=== PATIENT | female | born 1970 | race Caucasian/White ===

== ENCOUNTER 2019-10-11 10:05 | Outpatient (CLI) | payer MEDICARE, MEDICAID, SELFPAY ==
--- NOTE | 2019-10-11 10:13 | MM_ITS ---
WS: [id number] BILATERAL DIGITAL SCREENING MAMMOGRAPHY WITH CAD CLINICAL INFORMATION: SCREENING HISTORY: Screening mammogram. No current complaints. COMPARISON: September 22, 2018 TECHNIQUE: Bilateral CC and MLO views. FINDINGS: Scattered fibroglandular densities bilaterally. Lucent centered calcification left breast. No suspici ous focal mass, asymmetry, calcifications, or architectural distortion. No evidence of malignancy. MM/[id number] IMPRESSION: BI-RADS: 1-Negative FOLLOW UP: 1 Year Follow-up Recommend return to annual screening mammography.
== END 2019-10-11 10:06 | disposition home or self-care (01) ==
LOC: RADSHAW 10:10
PROVIDERS: Family Provider Family Medicine; Visit Provider Family Medicine
DX: Z12.31 Encounter for screening mammogram for malignant neoplasm of breast (principal)
CPT/HCPCS: 77067

== ENCOUNTER 2020-11-17 09:42 | Outpatient (CLI) | payer MEDICARE, MEDICAID, SELFPAY ==
--- NOTE | 2020-11-17 09:47 | MM_ITS ---
WS: [id number] Exam: [place] [id number] Date/Time of Exam: 11/17/2020 9:47 AM Reason For Exam: SCREENING VIEWS: MLO and CC views both breasts. Comparison made with prior exam of 09/21/2017, 09/22/2018 and 10/11/2019. Findings: There was no sign of mass, architectural distortion or suspicious calcification in either breast. Sc attered fibroglandular densities MM/[place] [id number] Impression: BI-RADS: 2-Benign FOLLOW-UP: 1 Year Follow-up This mammogram was also analyzed by the Computer Aided Detection System R2 Imag e Line Crewman.
== END 2020-11-17 09:43 | disposition home or self-care (01) ==
LOC: RADSHAW 09:46
PROVIDERS: Family Provider Family Medicine; Visit Provider Family Medicine
DX: Z12.31 Encounter for screening mammogram for malignant neoplasm of breast (principal)
CPT/HCPCS: 77067

== ENCOUNTER 2021-07-16 14:21 | Emergency (ER) | payer MEDICARE, MEDICAID, SELFPAY ==
[2021-07-16 14:29] VITALS: BP 139/95; PULSE 120; RESP 22; TEMP 37; O2SAT 97; BMI 54.6
--- NOTE | 2021-07-16 14:34 | XR_ITS ---
WS: [id number] Exam: XR chest 1V portable [id number] Date/Time of Exam: 07/16/2021 2:34 PM Reason For Exam: sob Comparison 07/04/2015. The lungs are clear and fully expanded. The heart is not enlarged. The mediastinum is not widened. Re gional bony elements appear normal. Monitoring leads superimpose the chest. XR/XR chest 1V portable [id number] IMPRESSION: 1. No acute cardiopulmonary finding.
--- NOTE | 2021-07-16 14:34 | ECG_ITS ---
[facility] Test Date: 2021-07-16 Pat Name: Juanis Padgett Department: Room: Gender: Female Cyber Security Analyst: : 1970 Requested By: Sekou Meadows Order Number: [id number] Jorje MD: Karli Velazquez M.D. Measurements Intervals Randolph Rate: P: MN: QRS: QRSD: T: QT: QTc: Interpretive Statements Possible sinus rhythm with PACs WARNING: DATA QUALITY MAY AFFECT INTERPRETATION No previous ECG available for comparison Electronically Signed On 07-17-2021 16:12:05 FORENSIC CHEMIST by Karli Velazquez M.D. [email or web address]
--- NOTE | 2021-07-16 15:03 | W.ED.SOB ---
HPI - SOB/Dyspnea General: Chief Complaint: Shortness of Breath/Dyspnea Stated Complaint: COVID SOB Time Seen by Provider: 07/16/21 14:33 History of Present Illness: HPI Narrative: Patient is a 51-year-old female here with shortness of breath. States that she got a Covid test this afternoon after somebody in her assisted living facility tested positive. It was a home off the shelf test. She did not have any symptoms abdomen some mild nausea to that point. That afternoon she became short of breath ambulance was called and she needed 3 L of nasal cannula to keep her up in the mid 90s. Has only had a mild cough no fevers chills chest pain vomiting diarrhea altered mental status or syncope Review of Systems General: Reports: 10 or more systems reviewed and unremarkable except in HPI and below PFSH ED PFSH: Medical History (Updated 07/16/21 @ 18:43 by Sekou Murillo MD) Diabetes Female hirsutism History of deep vein thrombosis Hypertension Metrorrhagia Patient no menses since last seen. FSH ordered and WNL. The patient was counseled regarding perimenopausal bleeding and the transition time for perimenopause. She had been prescribed a Depo-Provera injection. Menstrual diary tracking log was given. Follow-up in 3 months. Surgical History History of delivery (~1995) History of tubal ligation (~1995) Previous section (~1989) Social History (Updated 09/18/19 @ 13:43 by Guera Gloria RN) Smoking and tobacco status: never smoked Alcohol intake: never Physical Exam Const: COMMON NORMALS: no acute distress, average body habitus, patient oriented x3, no limitations, healthy appearing, alert and well nourished EXAM LIMITATIONS: no altered mental status, no behavioral limitations and no language barrier HENMT: COMMON NORMALS: normocephalic and atraumatic HEAD & SCALP: normocephalic and atraumatic Eye: COMMON NORMALS: Equal, round and reactive pupils present and EOMs intact bilaterally PUPIL: Yes Equal, round and reactive pupils present Chest: COMMONS NORMALS: normal inspection of the chest Resp: COMMON NORMALS: normal respiratory effort, No retractions, No use of accessory muscles and clear to auscultation bilaterally EFFORT & INSPECTION: Yes able to speak in complete sentences AUSCULTATION: clear to auscultation bilaterally Cardio: COMMON NORMALS: regular rate and regular rhythm RATE: regular rate and tachycardic RHYTHM: regular rhythm HEART SOUNDS: no gallops, no murmurs and no rubs GI: COMMON NORMALS: Normal to inspection, nondistended, normoactive bowel sounds present and Soft to palpation AUSCULTATION: Yes normoactive bowel sounds PALPATION: Yes Soft to palpation Extremity: COMMON NORMALS: normal to inspection Neuro: COMMON NORMALS: patient oriented x3, CN's II-XII intact bilaterally and moves all extremities SENSORIUM/ORIENTATION: Yes alert Psych: COMMON NORMALS: mental status grossly normal and Normal thought process present THOUGHT PROCESS: Normal thought process present Skin: COMMON NORMALS: no rashes or lesions noted and no wounds GENERAL SKIN EXAM: no rashes or lesions noted Course ED course: Patient continues to do well. She has been stable on 3 L of oxygen. Chest x-ray did not show any organizing pneumonia and her labs were essentially normal. D-dimer was elevated but in the expected range for somebody with mild Covid. She is not been hypotensive do not feel that she needs CTA at this point. We will have respiratory therapy work with her to see if she qualifies for home oxygen and if so she can be safely discharged home. Previous charting was an error laboratory results were of another patient. Incorrect charting has been deleted Patient is staying at 3 L of oxygen. She is comfortable labs are essentially normal I think she would be able to be discharged on home oxygen. Will order her oxygen and have her follow-up with her primary care provider. Will discharge her on steroids and Zofran Vital Signs: Vital signs: Vital Signs Temperature 98.6 F 07/16/21 18:31 Pulse Rate 96 07/16/21 18:31 Respiratory Rate 20 H 07/16/21 18:31 Blood Pressure 125/77 07/16/21 18:31 Pulse Oximetry 93 07/16/21 18:31 MDM - SOB/Dyspnea MDM Narrative: Medical decision making narrative: Patient is a 51-year-old recently diagnosed with Covid requiring oxygen In no acute respiratory distress at this time mental status is normal. We will do standard Covid work-up on her see what her oxygen requirement is because she [facility] she may not be able to be discharged back there so may have to admit her for observation ~ Differential Diagnosis: Shortness of Breath Differential Diagnosis: Likely acute exacerbation of chronic obstructive airways disease, congestive heart failure, community acquired pneumonia and asthma with exacerbation Medical Records: Attestation: I reviewed the patient's medical records. Lab Data: Attestation: I reviewed the patient's lab results. Labs: Lab Results 07/16/21 07/16/21 07/16/21 15:20 15:20 15:20 WBC 4.5 10^3/uL 10^3/ uL (4.0-10.0) RBC 4.31 10^6/uL 10^6 /uL (4.1-5.3) Hgb 13.7 g/dL g/dL (11.5-15.3) Hct 38.9 % % (37.0-47.0) MCV 90.3 fl fl (81-99) MCH 31.8 pg pg (28.0-34.0) MCHC 35.2 g/dL g/dL (30.0-36.0) RDW 13.2 % % (12.1-15.1) Plt Count 247 10^3/cmm 10^3 /cmm (130-400) MPV 10.6 fL H fL (7.4-10.4) Neut % (Auto) 78.8 % % Lymph % (Auto) 9.8 % % Maries % (Auto) 10.2 % % Eos % (Auto) 0.4 % % Baso % (Auto) 0.4 % % Neut # (Auto) 3.55 10^3/uL 10^3 /uL (1.8-7.7) Lymph # (Auto) 0.4 10^3/uL L 10^ 3/uL (0.8-4.8) Maries # (Auto) 0.5 10^3/uL 10^3/ uL (0.2-0.9) Eos # (Auto) 0.0 10^3/uL 10^3/ uL (0.0-0.8) Baso # (Auto) 0.0 10^3/uL 10^3/ uL (0.0-0.1) Nucleated RBC % (a uto) 0 % % Nucleated RBCs # 0.0 /100WBC /100W BC Fibrinogen 630 mg/dL H mg/dL (174-498) D-Dimer 1.06 ug/mIFEU H u g/mIFEU (0-0.59) Sodium 133 mmol/L L mmol /L (136-145) Potassium 3.4 mmol/L L mmol /L (3.5-5.1) Chloride 95 mmol/L L mmol/ L (98-107) Carbon Dioxide 19 mmol/L L mmol/ L (22-29) Anion Gap 22.4 H (5-19) BUN 8 mg/dL mg/dL (6-20) Creatinine 0.7 mg/dL mg/dL (0.5-0.9) GFR Calculation 87.5 mL/min L mL/ min (90-130) Glucose 91 mg/dL mg/dL (65-115) Calculated Osmolal ity 274 mOsm/kg L mOs m/kg (285-295) Lactic Acid Calcium 8.5 mg/dL mg/dL (8.5-10.5) Magnesium 1.5 mg/dL L mg/dL (1.7-2.3) Total Bilirubin 0.4 mg/dL mg/dL (0.15-1.2) AST 19 U/L U/L (0-32) ALT 20 U/L U/L (0-33) Alkaline Phosphata se 92 IU/L IU/L (35-105) Lactate Dehydrogen ase 104 U/L L U/L (135-214) Troponin T Gen 5 n g/L C-Reactive Protein 121.9 mg/L H mg/L (0.0-4.9) NT-Pro-B Natriuret Pep 230 pg/mL H pg/mL (0-125) Total Protein 6.7 g/dL g/dL (6.6-8.7) Albumin 3.9 g/dL g/dL (3.5-5.2) Globulin 2.8 g/dL g/dL (1.3-4.6) Procalcitonin 0.10 ng/mL ng/mL (0-0.5) SARS-CoV-2 Ag (Rap id) 07/16/21 07/16/21 07/16/21 15:20 15:20 15:20 WBC RBC Hgb Hct MCV MCH MCHC RDW Plt Count MPV Neut % (Auto) Lymph % (Auto) Maries % (Auto) Eos % (Auto) Baso % (Auto) Neut # (Auto) Lymph # (Auto) Maries # (Auto) Eos # (Auto) Baso # (Auto) Nucleated RBC % (a uto) Nucleated RBCs # Fibrinogen D-Dimer Sodium Potassium Chloride Carbon Dioxide Anion Gap BUN Creatinine GFR Calculation Glucose Calculated Osmolal ity Lactic Acid 1.0 mmol/L mmol/L (0.5-2.2) Calcium Magnesium Total Bilirubin AST ALT Alkaline Phosphata se Lactate Dehydrogen ase Troponin T Gen 5 n g/L 8 ng/L ng/L (0-10) C-Reactive Protein NT-Pro-B Natriuret Pep Total Protein Albumin Globulin Procalcitonin SARS-CoV-2 Ag (Rap id) Positive H (Negative) Discharge Plan Discharge Patient Disposition: Home Condition: Stable Prescriptions: New prednisone 20 mg tablet 20 mg PO BID 7 Days Qty: 14 RF: 0 Zofran 4 mg tablet 4 mg PO Q8H 5 Days Qty: 15 RF: 0 No Action bupropion HCl [Wellbutrin XL] 300 mg tablet extended release 24 hr 300 mg PO QAM RF: 0 ranitidine HCl 300 mg capsule 300 mg PO BID RF: 0 medroxyprogesterone [Depo-Provera] 150 mg/mL syringe 150 mg IM .every three month RF: 0 ascorbic acid (vitamin C) 500 mg tablet 250 mg PO QDAY RF: 0 acetaminophen [Tylenol] 325 mg tablet 650 mg PO Q6H PRNRF: 0 nystatin 100,000 unit/gram cream 1 applic TOPICAL QDAY PRNRF: 0 Discharge Orders: Discharge ED (Routine); Ordered 07/16/21 Ordered By: Sekou Murillo Other Ambulatory Orders: DME: Oxygen (Order) Location: None Selected Ordered By: Sekou Murillo Referrals: Maxine Rebollar MD [Primary Care Provider] - 1-3 days Patient Instructions: COVID-19 (Coronavirus Disease 2019) (ED), How to Recover from COVID-19 at Home (ED) Activity Restrictions/Additional Instructions: Take medications as prescribed. Follow-up with your primary care provider in 3 to 5 days. Return the emergency department with any new or worsening symptoms in particular if you are unable to keep any fluids down if you feel much more short of breath or if you are needing to use more than 5 L of oxygen. Coding Level of Care Code ED Stucco Mason for Chg Fwd Exam Comprehensive
[2021-07-16 15:17] VITALS: BP 134/78; PULSE 113; RESP 30; TEMP 38.5; O2SAT 92
[2021-07-16 15:54] LABS: Basophils % 0.4 %; Eosinophils % 0.4 %; Hematocrit 38.9 % (37.0-47.0); Hemoglobin 13.7 g/dL (11.5-15.3); Lymphocytes # 0.4 10^3/uL (0.8-4.8); Lymphocytes % 9.8 %; Mean Corpuscular HGB Conc 35.2 g/dL (30.0-36.0); Mean Corpuscular Hemoglobin 31.8 pg (28.0-34.0); Mean Corpuscular Volume 90.3 fl (81-99); Mean Platelet Volume 10.6 fL (7.4-10.4); Monocytes # 0.5 10^3/uL (0.2-0.9); Monocytes % 10.2 %; Neutrophils # 3.55 10^3/uL (1.8-7.7); Neutrophils % 78.8 %; Nucleated Red Blood Cells % 0 %; Platelet Count 247 10^3/cmm (130-400); Red Blood Count 4.31 10^6/uL (4.1-5.3); Red Cell Distribution Width 13.2 % (12.1-15.1); White Blood Count 4.5 10^3/uL (4.0-10.0)
[2021-07-16 16:18] LABS: SARS Covid-2 Antigen Positive (Negative)
[2021-07-16 16:33] LABS: Troponin T (5th) Once 8 ng/L (0-10)
[2021-07-16 16:35] LABS: Fibrinogen 630 mg/dL (174-498)
[2021-07-16 16:38] LABS: D Dimer 1.06 ug/mIFEU (0-0.59)
[2021-07-16 16:41] LABS: NT Pro B Type Natriuretic Pept 230 pg/mL (0-125)
[2021-07-16 16:52] LABS: Alanine Aminotransferase 20 U/L (0-33); Albumin Level 3.9 g/dL (3.5-5.2); Alkaline Phosphatase 92 IU/L (35-105); Anion Gap 22.4 (5-19); Aspartate Amino Transferase 19 U/L (0-32); Blood Urea Nitrogen 8 mg/dL (6-20); C Reactive Protein 121.9 mg/L (0.0-4.9); Calcium 8.5 mg/dL (8.5-10.5); Carbon Dioxide 19 mmol/L (22-29); Chloride 95 mmol/L (98-107); Globulin 2.8 g/dL (1.3-4.6); Glomerular Filtration Rate 87.5 mL/min (90-130); Glucose 91 mg/dL (65-115); Lactate Dehydrogenase 104 U/L (135-214); Magnesium 1.5 mg/dL (1.7-2.3); Osmolality Calculated 274 mOsm/kg (285-295); Potassium 3.4 mmol/L (3.5-5.1); Sodium 133 mmol/L (136-145); Total Bilirubin 0.4 mg/dL (0.15-1.2); Total Protein 6.7 g/dL (6.6-8.7)
--- NOTE | 2021-07-16 17:40 | PC.NURSE ---
Daughter Linh calling for update, would like a follow up call once pt status is determined. [phone]
[2021-07-16 17:48] VITALS: O2SAT 94
[2021-07-16 18:31] VITALS: BP 125/77; PULSE 96; RESP 20; TEMP 37; O2SAT 93
[2021-07-16 19:57] VITALS: BP 142/82; PULSE 86; RESP 18; O2SAT 92
== END 2021-07-16 19:58 | disposition home or self-care (01) ==
PROVIDERS: Emergency Provider Family Medicine; PCP Family Medicine
DX: U07.1 COVID-19 (principal); E11.9 Type 2 diabetes mellitus without complications; I10 Essential (primary) hypertension
CPT/HCPCS: 71045; 80053; 83605; 83615; 83735; 83880; 84145; 84484; 85025; 85378; 85384; 86140; 87426; 93005; 99284

== ENCOUNTER 2022-01-15 12:56 | Outpatient (CLI) | payer MEDICARE, MEDICAID, SELFPAY ==
--- NOTE | 2022-01-15 13:05 | MM_ITS ---
WS: [id number] Bilateral screening 3D tomosynthesis digital mammogram, 01/15/2022 Clinical Data: SCREENING Comparison: 11/17/2020, 10/11/2019, 09/22/2018, 09/21/2017. Findings: The breast parenchymal pattern shows fat replacement. No spiculated masses or clustered calcification s are seen. There are no secondary signs of carcinoma. MM/[place] [id number] Impression: 1. Negative bilateral mammogram unchanged. 2. Recommend annual screening mammograms. BIRADS: 1-Negative FOLLOW UP: 1 Year Follow-up The CAD unloading checker was used.
== END 2022-01-15 12:57 | disposition home or self-care (01) ==
PROVIDERS: PCP Family Medicine; Visit Provider Family Medicine
DX: Z12.31 Encounter for screening mammogram for malignant neoplasm of breast (principal)
CPT/HCPCS: 77067

== ENCOUNTER 2022-04-19 15:31 | Outpatient (CLI) | payer MEDICARE, MEDICAID, SELFPAY ==
--- NOTE | 2022-04-19 15:46 | XRR_ITS ---
PROCEDURE INFORMATION: Exam: XR Right Knee Exam date and time: 04/19/2022 4:02 PM Age: 52 years old Clinical indication: Pain; Knee; Right; Additional info: Knee pain TECHNIQUE: Imaging protocol: Radiologic exam of the Right knee. Views: 3 views. COMPARISON: No relevant prior studies available. FINDINGS: Bones/joints: No acute fracture or dislocation. There is moderate tricompartmental degenerative changes of the right knee, involving mainly the medial compartment, manifested by joint space narrowing, subchondral sclerosis and periarticular osteophytes. Soft tissues: Normal. XR/XR knee RT 3V* [id number] IMPRESSION: Moderate tricompartmental osteoarthrosis, involving mainly the medial compartment.
== END 2022-04-19 15:32 | disposition home or self-care (01) ==
LOC: RAD 15:36
PROVIDERS: PCP Family Medicine; Visit Provider Family Medicine
DX: M17.11 Unilateral primary osteoarthritis, right knee (principal)
CPT/HCPCS: 73562

== ENCOUNTER 2023-01-17 14:09 | Outpatient (CLI) | payer MEDICARE, MEDICAID, SELFPAY ==
--- NOTE | 2023-01-17 14:32 | MM_ITS ---
WS: [id number] BILATERAL 3D TOMOSYNTHESIS DIGITAL SCREENING MAMMOGRAPHY WITH CAD CLINICAL INFORMATION: SCREENING HISTORY: Screening mammogram. No current complaints. COMPARISON: 2021 TECHNIQUE: Bilateral CC and MLO views. FINDINGS: Scattered fibroglandular densities bilaterally. No suspicious focal mass, asymmetry, calcifications, or architectural distortion. No evidence of malignancy. MM/[place] [id number] IMPRESSION: BI-RADS: 1-Negative FOLLOW UP: 1 Year Follow-up Recommend return to annual screening mammography.
== END 2023-01-17 14:10 | disposition home or self-care (01) ==
LOC: RAD 14:16
PROVIDERS: PCP Family Medicine; Visit Provider Family Medicine
DX: Z12.31 Encounter for screening mammogram for malignant neoplasm of breast (principal)
CPT/HCPCS: 77067

== ENCOUNTER → 2023-10-10 14:15 | Outpatient (BNVA) | payer MEDICARE, MEDICAID, SELFPAY | PROVIDERS: PCP Family Medicine; Referring Provider Nurse Practitioner Family; Visit Provider Obstetrics & Gynecology | DX: N95.0 Postmenopausal bleeding (principal); U07.1 COVID-19; Z79.899 Other long term (current) drug therapy | CPT/HCPCS: 83001; 84146; 85025 ==

== ENCOUNTER → 2023-10-26 12:05 | Outpatient (BNVA) | payer MEDICARE, MEDICAID, SELFPAY | PROVIDERS: PCP Family Medicine; Visit Provider Obstetrics & Gynecology | DX: N95.0 Postmenopausal bleeding (principal) | CPT/HCPCS: 76830 ==

== ENCOUNTER 2023-12-30 07:03 | Outpatient (CLI) | payer MEDICARE, MEDICAID, SELFPAY ==
--- NOTE | 2023-12-30 07:12 | MR_ITS ---
WS: [id number] MRI HEAD WITHOUT AND WITH GADOLINIUM ENHANCEMENT WITH ATTENTION TO THE PITUITARY. TECHNIQUE: Sagittal T1, T2 axial, T2 axial FLAIR, axial susceptibility weighted imaging, axial diffus ion weighted images, and coronal T2 images were obtained. Pre and post-T1 axial and post T1 coronal i mages. High-resolution pituitary imaging. Dynamic pituitary imaging. ] CLINICAL INFORMATION: E22.1 - Hyperprolactinemia COMPARISON: None. FINDINGS: Normal enhancing pituitary tissue in the sella. No evidence of sellar or suprasellar lesion. No gladis dence of microadenoma on the dynamic pituitary imaging. No evidence of restricted diffusion to suggest acute ischemia. Moderate small vessel changes. Mild pa renchymal volume loss. Small vessel changes in the florence. 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 Normal vascular flow voids at the skull base. No extra-axial fluid collections. Incidental cavum s eptum pellucida and vergae. Paranasal sinuses and mastoid air cells are well aerated. No hemosiderin on the susceptibility weighted images. Moderate symmetric atrophy temporal lobes hippocampal formatio ns. No abnormal gadolinium enhancement. Normal dural venous sinuses. MR/MR pituitary wo/w con* [id number] IMPRESSION: Some images are graded by motion. 1. No evidence of intrasellar or suprasellar mass. 2. Normal enhancing pituitary tissue. No evidence of microadenoma. 3. No restricted diffusion to suggest acute ischemia. 4. Moderate small vessel changes with mild parenchymal volume loss. Small vess el changes in the florence.
[2023-12-30] MEDS: gadobenate dimeglumine 20 mL vial IV (09:15)
== END 2023-12-30 07:04 | disposition home or self-care (01) ==
LOC: RAD 07:05
PROVIDERS: PCP Family Medicine; Visit Provider Obstetrics & Gynecology
DX: E22.1 Hyperprolactinemia (principal)
CPT/HCPCS: 70553; A9577

== ENCOUNTER 2024-01-10 08:59 | Day surgery (SDC) | payer MEDICARE, MEDICAID, SELFPAY ==
--- NOTE | 2024-01-06 11:02 | P.ANESASSM_ITS ---
Pre-Anesthetic Assessment Height/Weight: Height 1.52 m Operation Date: 01/10/24 11:40 Proposed Procedures p Hysteroscopy w/ Myosure(Not Applicable) - Daniel Reilly MD s Dilation And Curettage (D&C) 23896, 82536,R93.89, N95.0 ,N84.0(Not Applicable) - Daniel Reilly MD Familial anesthetic complications: None Was Beta Denise taken within 24 hours: N/A Was Clonidine taken within 24 hours: N/A Social No alcohol and No tobacco Exam alert, oriented x 3, clear to auscultation bilaterally and regular rate & rhythm Airway Dentition: full Pulmonary None reported CV/HEM None reported Metabolic Morbid Obesity [facility] [place] Osteoarthritis/DJD Anesthetic Plan ASA status: 3 Risk of > 500 ml blood loss (7ml/kg in children): No Medications/Allergies Home Medications Medication Instructions Recorded Confirmed Last Taken Type acetaminophen 325 mg tablet 650 mg PO Q6H PRN Pain 09/14/19 01/06/24 Unknown History (Tylenol) bupropion HCl 300 mg 24 hr tablet, 300 mg PO QAM 09/14/19 01/06/24 01/06/24 History extended release (Wellbutrin XL) medroxyprogesterone 150 mg/mL 150 mg IM .every three month 09/14/19 01/06/24 Unknown History intramuscular syringe (Depo-Provera) nystatin 100,000 unit/gram topical 1 applic topical QDAY PRN Rash 09/14/19 01/06/24 Unknown History cream ranitidine HCl 300 mg capsule 300 mg PO BID 09/14/19 01/06/24 01/06/24 History Allergies Allergy/AdvReac Type Severity Reaction Status Date / Time No Known Allergies Allergy Verified 01/06/24 10:49 [facility] Anesthesia Medical History (Updated 12/07/23 @ 14:05 by Daniel Reilly MD) Hypertension Diabetes History of deep vein thrombosis Female hirsutism Metrorrhagia Patient no menses since last seen. FSH ordered and WNL. The patient was counseled regarding perimenopausal bleeding and the transition time for perimenopause. She had been prescribed a Depo-Provera injection. Menstrual diary tracking log was given. Follow-up in 3 months. Surgical History History of delivery (~1995) Previous section (~1989) History of tubal ligation (~1995) Social History Substance/Drug Use: never Data Anesthesia Cardiac Studies: No Data to Display
[2024-01-10] VITALS (11 sets, daily range): BP systolic 121–156; BP diastolic 75–97; PULSE 73–84; RESP 10–18; TEMP 36.4–37.1; O2SAT 92–99; BMI 53.1
--- NOTE | 2024-01-10 10:03 | P.ANESUD_ITS ---
Pre-Anesthetic Update Pre-Anesthetic Assessment: Date of Surgery/Procedure: 01/10/24 Preop Marybel gnosis: Postmenopausal bleeding Proposed Procedure: Operation Date: 01/10/24 10:40 Proposed Procedures p Hysteroscopy w/ Myosure(Not Applicable) - Daniel Reilly MD s Dilation And Curettage (D&C) 03579, 51564,R93.89, N95.0 ,N84.0(Not Applicable) - Daniel Reilly MD Last Intake: Intake Last Liquid Date 01/09/24 Last Liquid Time 17:00 Last Solid Date 01/09/24 Last Solid Time 17:00 Vitals: Temperature 98.7 F 01/10/24 09:14 Temperature Source Temporal Artery S can 01/10/24 09:14 Pulse Rate 79 01/10/24 09:14 Pulse Rhythm Regular 01/10/24 09:34 Pulse Strength 3+ Normal 01/10/24 09:34 Respiratory Rate 18 01/10/24 09:14 Blood Pressure 147/93 01/10/24 09:14 Blood Pressure Mary n 111 01/10/24 09:14 Pulse Oximetry 95 01/10/24 09:14 Oxygen Delivery Me thod Room Air 01/10/24 09:34 Exam: Pre-Anes Outpt Exam: alert, oriented x 3, clear to auscultation bilaterally and regular rate & rhythm Cardiac Studies: No Data to Display
[2024-01-10] MEDS: sodium chloride 0.9% 1,000 ML 30 ML IV (10:05)
[2024-01-10] MEDS: scopolamine 1.5 Patch 1 PATCH TRANSDERMA (10:05)
--- NOTE | 2024-01-10 10:11 | W.PM.OPSUD ---
Surgery/Procedure H&P Update DATE OF PROCEDURE: January 10, 2024 DATE H&P PERFORMED: 01/06/24 H&P UPDATE INFORMATION: I have reviewed H&P completed within last 30 days, I have examined patient prior to procedure and No changes to prior documentation PREOP DIAGNOSIS: Postmenopausal bleeding PLANNED PROCEDURE: Operation Date: 01/10/24 10:40 Proposed Procedures p Hysteroscopy w/ Myosure(Not Applicable) - Daniel Reilly MD s Dilation And Curettage (D&C) 69120, 76841,R93.89, N95.0 ,N84.0(Not Applicable) - Daniel Reilly MD
[2024-01-10 10:13] LABS: Basophils % 0.3 %; Eosinophils # 0.1 10^3/uL (0.0-0.8); Lymphocytes # 2.1 10^3/uL (0.8-4.8); Lymphocytes % 33.1 %; Mean Corpuscular HGB Conc 33.7 g/dL (30-55); Mean Corpuscular Hemoglobin 30.5 pg (27-33); Mean Corpuscular Volume 90.3 fl (85-98); Mean Platelet Volume 10.4 fL (7.4-10.4); Monocytes # 0.5 10^3/uL (0.2-0.9); Monocytes % 7.3 %; Nucleated Red Blood Cells % 0 %; Platelet Count 308 10^3/cmm (157-399); Red Blood Count 4.76 10^6/uL (3.85-5.65); Red Cell Distribution Width 14.5 % (12.1-15.1)
[2024-01-10 10:30] LABS: Alanine Aminotransferase 16 U/L (0-33); Albumin Level 3.9 g/dL (3.5-5.2); Alkaline Phosphatase 121 U/L (35-105); Anion Gap 14.8 (5-19); Aspartate Amino Transferase 16 U/L (0-32); Blood Urea Nitrogen 12 mg/dL (6-20); Calcium 8.3 mg/dL (8.5-10.5); Carbon Dioxide 25 mmol/L (22-29); Chloride 104 mmol/L (98-107); Creatinine Clr Calc Pharmacy 128.1949; Globulin 3.4 g/dL (1.3-4.6); Glomerular Filtration Rate 103.8 mL/min (90-130); Glucose 96 mg/dL (65-115); Osmolality Calculated 290 mOsm/kg (285-295); Potassium 3.8 mmol/L (3.5-5.1); Sodium 140 mmol/L (136-145); Total Bilirubin 0.5 mg/dL (0.15-1.2); Total Protein 7.3 g/dL (6.6-8.7)
[2024-01-10] MEDS: ceFAZolin 2,000 MG in sodium chloride 0.9% (plus) 50 ML 100 MG IV (10:35)
[2024-01-10] MEDS: ceFAZolin 1,000 MG in sodium chloride 0.9% (plus) 50 ML 100 MG IV (10:55)
[2024-01-10] MEDS: lidocaine-epi 2% PF 1:200,000 20 mL SDV XX (11:08)
--- NOTE | 2024-01-10 11:33 | PM.OP ---
Operative Report Date of procedure: January 10, 2024 Pre-op diagnosis: Postmenopausal bleeding Post-op diagnosis: same Post-op findings: Atrophic endometrium Procedure done: Hysteroscopy with D&C via MyoSure Specimens removed/disposition: Endometrial curette Surgeon: Daniel Reilly MD Estimated blood loss (mL): 10 Urine output (mL): 25 Complications: None Procedure: After informed consent, the risks included but were not limited to bleeding, infection, injury to internal organs. The patient was counseled on a possible laparotomy and on the potential need for hysterectomy. The patient expressed understanding of the risks involved, all questions were answered, and the patient consented to the procedure. The patient was taken to the operating room where general anesthesia was administered. She was placed in the dorsal lithotomy position and prepped and draped in sterile fashion. A time out procedure was performed. The patient was examined under anesthesia and found to have a normal uterus with normal adnexa. A sterile weight speculum was placed in the vagina. The uterus was then gently sounded to 5 cm, and the cervix was dilated. The 0 degrees MyoSure hysteroscope was advanced gently to the uterine fundus while visualizing the monitor. Survey of the uterine cavity showed: Atrophic endometrium, the fundus shows atrophic endometrium; left ostium was visualized, and lateral wall with atrophic endometrium; right ostium visualized, and lateral wall with atrophic endometrium; anterior and posterior escalera are with atrophic; endocervical canal is normal. The MyoSure device was advanced and the direct visualization the endometrium was morcellated without complication. At the end of morcellation the fluid deficit was 265 mL and was estimated at approximately 200 mL were on the floor. There was minimal bleeding noted and the tenaculum removed with goad hemostasis noted. The patient tolerated the procedure well. The patient was taken to the recovery area in stable condition.
[2024-01-10 11:56] LABS: Add Urine Microscopic? YES; Bilirubin Urine Neg (Negative); Blood Urine 2+ (Negative); Glucose Urine UA Norm (Normal); Ketones Urine 1+ (Negative); Leukocyte Esterase Urine Negative (Negative); Nitrate Urine Negative (Negative); Protein Urine Neg (Negative); Urine Appearance Clear (CLEAR); Urine Color Yellow (Yellow); Urobilinogen Urine 1 mg/dL (Negative); pH Urine 7 (5-7)
[2024-01-10 12:26] LABS: Add Urine Culture? No; Bacteria Urine TRACE /hpf; Mucus Urine 2+ /hpf; RBC Urine 0-4 /hpf (0-2); Squamous Epithelial Cell Urine 0-4 /hpf (0-5); Transitional Epi Cells Urine 0-4 /hpf; WBC Urine RARE /hpf (0-5)
--- NOTE | 2024-01-10 13:45 | ANE.PACU2 ---
Inpatient post-anesthesia follow up: Vital signs: Temperature 98.3 F Pulse Rate 73 Respiratory Rate 16 Blood Pressure 156/97 Pulse Oximetry 93 Oxygen Delivery Me thod Room Air Oxygen Flow Rate 6 Fraction of Inspir ed Oxygen Hydration adequate: Yes Nausea and vomiting: No Pain level: controlled Mental status: Baseline Additional Comments: no apparent anesthetic complications noted
== END 2024-01-10 13:55 | disposition home or self-care (01) ==
PROVIDERS: PCP Family Medicine; Visit Provider Obstetrics & Gynecology
PROC: 0UDB8ZZ Extraction of Endometrium, Via Natural or Artificial Opening Endoscopic (ICD-10-PCS; CPT 58558; principal; 2024-01-10 10:30)
PROC: (CPT 58120; 2024-01-10 10:30)
DX: N95.0 Postmenopausal bleeding (principal)
CPT/HCPCS: 58558; 36415; 80053; 81001; 85025; 86850; 86900; 88305; J0690; J1100; J2371; J2405; J2704; J3010; J3490; J7030

== ENCOUNTER 2024-02-10 13:58 | Outpatient (CLI) | payer MEDICARE, MEDICAID, SELFPAY ==
--- NOTE | 2024-02-10 14:05 | MM_ITS ---
WS: [id number] BILATERAL 3D TOMOSYNTHESIS DIGITAL SCREENING MAMMOGRAPHY WITH CAD CLINICAL INFORMATION: SCREENING HISTORY: Screening mammogram. No current complaints. COMPARISON: 2022 TECHNIQUE: Bilateral CC and MLO views. FINDINGS: Scattered fibroglandular densities bilaterally. No suspicious focal mass, asymmetry, calcifications, or architectural distortion. No evidence of malignancy. Incidental punctate calcifications. MM/[place] [id number] IMPRESSION: BI-RADS: 2-Benign FOLLOW UP: 1 Year Follow-up Recommend return to annual screening mammography.
== END 2024-02-10 13:59 | disposition home or self-care (01) ==
PROVIDERS: PCP Family Medicine; Visit Provider Family Medicine
DX: Z12.31 Encounter for screening mammogram for malignant neoplasm of breast (principal); R92.323 Mammographic fibroglandular density, bilateral breasts; R92.1 Mammographic calcification found on diagnostic imaging of breast
CPT/HCPCS: 77063; 77067

== ENCOUNTER → 2024-02-27 16:42 | Outpatient (BNVA) | payer MEDICARE, MEDICAID, SELFPAY | PROVIDERS: PCP Family Medicine; Visit Provider Obstetrics & Gynecology | DX: Z48.816 Encounter for surgical aftercare following surgery on the genitourinary system (principal); E22.1 Hyperprolactinemia | CPT/HCPCS: 82670; 83001 ==

== ENCOUNTER 2025-02-13 10:03 | Outpatient (CLI) | payer MEDICARE, MEDICAID, SELFPAY ==
--- NOTE | 2025-02-13 10:12 | MM_ITS ---
WS: [id number] SCREENING DIGITAL BREAST TOMOSYNTHESIS MAMMOGRAM WITH CAD HISTORY: SCREENING COMPARISON: 02/10/2024 and 01/15/2023. Bilateral CC and MLO with tomosynthesis and synthetic mammography submitted. Computer aided detection analyzed. Breast composition: There are scattered areas of fibroglandular density. There are a few benign scattered calcifications within each breast. No mass. Recommend additional imaging of each breast in the MLO position to include the entire breast. The superior upper outer quadrants of each breast have not been adequately included on the mammographic imaging. MM/MM [facility] tomosynthesis [id number] IMPRESSION: BI-RADS: 0 - Incomplete: Need additional imaging evaluation. FOLLOW UP: Need Additional Imaging Recommend additional imaging of each breast in the MLO projection to include th e axillary tails. Not all of the breast tissue has been included on this mammog raphic exam. This should be done at no additional charge.
== END 2025-02-13 10:04 | disposition home or self-care (01) ==
LOC: RAD 10:04
PROVIDERS: PCP Family Medicine; Visit Provider Internal Medicine
DX: Z12.31 Encounter for screening mammogram for malignant neoplasm of breast (principal); R92.323 Mammographic fibroglandular density, bilateral breasts; R92.1 Mammographic calcification found on diagnostic imaging of breast
CPT/HCPCS: 77063; 77067